=== PATIENT | female | born 1985 | race Caucasian/White ===

== ENCOUNTER 2017-01-04 12:04 | Emergency (ER) | payer OTHER | END 2017-01-04 15:55 | disposition home or self-care (01) | LOC: ER1 12:04 | DX: M54.41 Lumbago with sciatica, right side (principal); Z90.49 Acquired absence of other specified parts of digestive tract | CPT/HCPCS: 72100; 81001; 84703; 96372; 99283; J1885 ==

== ENCOUNTER → 2017-01-28 | Outpatient (CLI) | payer OTHER | LOC: US 07:06 | DX: R10.11 Right upper quadrant pain (principal); K76.0 Fatty (change of) liver, not elsewhere classified | CPT/HCPCS: 76705 ==

== ENCOUNTER 2017-03-29 12:10 | Emergency (ER) | payer OTHER | END 2017-03-29 18:55 | disposition home or self-care (01) | LOC: ER1 12:10 | DX: M51.27 Other intervertebral disc displacement, lumbosacral region (principal); M19.90 Unspecified osteoarthritis, unspecified site | CPT/HCPCS: 36415; 72100; 72148; 81001; 84703; 87086; 96374; 96375; 96376; 99284; J1100; J2270; J2405 ==

== ENCOUNTER → 2021-01-16 | Outpatient (CLI) | payer OTHER ==
[~2021-01-16] MED LIST: ACETAMINOPHEN500 M1 PO; AUGMENTIN 875-1 EACH PO; FIORINAL 50-321 EACH PO; FLEXERIL 10 MG10 MG PO; LODINE CAP 300300 MG PO; MACROBID 100 M100 MG PO; OMNICEF 300 MG300 MG PO; TESSALON PERLE100 MG PO; ZOFRAN ODT 4 MG4 MG SL
== END ==
LOC: LAB 14:09
DX: E89.0 Postprocedural hypothyroidism (principal)
CPT/HCPCS: 36415; 84443

== ENCOUNTER 2021-02-19 20:51 | Emergency (ER) | payer OTHER ==
[~2021-02-19 20:51] MED LIST changes: -ACETAMINOPHEN500 M1 PO; -MACROBID 100 M100 MG PO
[2021-02-20] MEDS ORDERED: ACETAMINOPHEN500 M1 PO (02:33)
[2021-02-20] MEDS ORDERED: MACROBID 100 M100 MG PO (02:33)
== END 2021-02-20 02:40 | disposition home or self-care (01) ==
LOC: ER1 20:51
DX: N39.0 Urinary tract infection, site not specified (principal); Z79.899 Other long term (current) drug therapy
CPT/HCPCS: 73502; 81001; 84703; 99283

== ENCOUNTER → 2021-02-24 | Outpatient (CLI) | payer OTHER ==
[~2021-02-24] MED LIST changes: +ACETAMINOPHEN500 M1 PO; +MACROBID 100 M100 MG PO
== END ==
LOC: US 15:00
DX: M79.604 Pain in right leg (principal); M79.605 Pain in left leg
CPT/HCPCS: 93970

== ENCOUNTER → 2021-03-12 | Outpatient (CLI) | payer OTHER | LOC: KOH-I 15:15 | DX: M51.27 Other intervertebral disc displacement, lumbosacral region (principal) | CPT/HCPCS: 72148 ==

== ENCOUNTER 2021-07-11 17:08 | Emergency (ER) | payer OTHER ==
[2021-07-11] MEDS ORDERED: SUDAFED 60 MG T60 MG PO (17:23)
[2021-07-11] MEDS ORDERED: MEDROL DOSEPAK 24 MG PO (17:23)
[2021-07-11] MEDS ORDERED: ZITHROMAX250 MG PO (17:23)
[2021-07-11] MEDS ORDERED: FLONASE 0.05% N16 GM (17:23)
== END 2021-07-11 17:24 | disposition home or self-care (01) ==
LOC: ER1 17:08
DX: J06.9 Acute upper respiratory infection, unspecified (principal)
CPT/HCPCS: 99282

== ENCOUNTER → 2021-07-17 | Outpatient (CLI) | payer OTHER ==
[~2021-07-17] MED LIST changes: +FLONASE 0.05% N16 GM; +MEDROL DOSEPAK 24 MG PO; +SUDAFED 60 MG T60 MG PO; +ZITHROMAX250 MG PO
== END ==
LOC: KOH-I 14:48
DX: R05.9 Cough, unspecified (principal)
CPT/HCPCS: 71046

== ENCOUNTER 2021-11-29 10:56 | Emergency (ER) | payer OTHER ==
[2021-11-29 11:56] LABS: HEMOGLOBIN 13.6 gm/dl (12.3-15.3); RED BLOOD COUNT 4.38 M/UL (4.00-5.10); WHITE BLOOD COUNT 8.1 K/UL (4.5-11.0)
[2021-11-29 12:21] LABS: BUN/CREATININE RATIO 16 (0-10)
[2021-11-29] MEDS ORDERED: PREDNISONE 20 M20 MG PO (13:57)
[2021-11-29] MEDS ORDERED: NAPROXEN500 MG PO (13:58)
== END 2021-11-29 14:05 | disposition home or self-care (01) ==
LOC: ER1 10:56
PROVIDERS: Student in an Organized Health Care Education/Training Program
DX: M54.12 Radiculopathy, cervical region (principal); R07.9 Chest pain, unspecified; E11.9 Type 2 diabetes mellitus without complications; Z88.8 Allergy status to other drugs, medicaments and biological substances
CPT/HCPCS: 71045; 72125; 73030; 80048; 82550; 82553; 84484; 85025; 93005; 99285

== ENCOUNTER → 2022-03-18 | Outpatient (CLI) | payer OTHER ==
[~2022-03-18] MED LIST changes: +NAPROXEN500 MG PO; +PREDNISONE 20 M20 MG PO
== END ==
LOC: KOH-I 09:10
DX: R74.8 Abnormal levels of other serum enzymes (principal); K76.0 Fatty (change of) liver, not elsewhere classified; Z90.49 Acquired absence of other specified parts of digestive tract
CPT/HCPCS: 76705

== ENCOUNTER 2022-04-11 12:57 | Emergency (ER) | payer OTHER ==
[2022-04-11 13:52] LABS: HEMOGLOBIN 13.9 gm/dl (12.3-15.3); RED BLOOD COUNT 4.42 M/UL (4.00-5.10); WHITE BLOOD COUNT 10.2 K/UL (4.5-11.0)
[2022-04-11 14:14] LABS: BUN/CREATININE RATIO 20 (0-10)
[2022-04-11] MEDS ORDERED: ZOFRAN ODT 4 MG4 MG GT (17:03)
[2022-04-11] MEDS ORDERED: KEFLEX CAP 250250 MG PO (17:05)
== END 2022-04-11 17:39 | disposition home or self-care (01) ==
LOC: ER1 12:57
PROVIDERS: Family Medicine
DX: B34.9 Viral infection, unspecified (principal); N39.0 Urinary tract infection, site not specified; Z20.822 Contact with and (suspected) exposure to COVID-19
CPT/HCPCS: 0240U; 80053; 81001; 83690; 84703; 85025; 87081; 87086; 87880; 96374; 99283; J2405